=== PATIENT | male | born 1985 | race Caucasian/White ===

== ENCOUNTER 2020-04-28 20:48 | Emergency (ER) | payer MEDICAID ==
[2020-04-28 21:02] VITALS: BP 126/75; PULSE 64
--- NOTE | 2020-04-28 21:34 | EDM.PDOC ---
ED HPI GENERAL MEDICAL PROBLEM - General Chief Complaint: General Stated Complaint: HEADACHE, VISION DISTURBANCE EPISODE Time Seen by Provider: 04/28/20 20:56 Source of Information: Reports: Patient, Family, RN, RN Notes Reviewed History Limitations: Reports: No Limitations - History of Present Illness INITIAL COMMENTS - FREE TEXT/NARRATIVE: Earlier this evening patient had a numbness/kaleidoscope aura in his left eye. He defines this as a strange event unlike anything is ever experienced. He denies pain, blurriness of vision or headache. He states he went for a walk and within about 20 minutes or so the symptoms went away. A short time later, he had a pain/numbness feeling in his left hand. He does have a cyst in his wrist that occasionally causes numbness. His massages the area for him and the numbness went away. At approximately 8:00 or so he describes a numbness in his mouth and lips predominantly the left side. No facial numbness. No eye droop, and no numbness of his tongue. The symptoms also resolved. Without any residual effects. Patient states his father has had a stroke, his brother had a TIA at the age of 43. Patient is concerned symptoms are a problem told to a stroke. Onset: Today, Sudden Onset Date: 04/28/20 Onset Time: 19:00 Duration: Hour(s):, Resolved Prior to Arrival Location: Reports: Head, Face, Upper Extremity, Left Quality: Reports: Other (Numbness in the face around the mouth, R in left eye, numbness in left hand with probable explanation related to cyst in the wrist. He states the numbness in the hand has occurred before with no other symptoms.) Severity: Mild Improves with: Reports: Movement (Patient went for a walk and aura in face/left eye was relieved.) Worsens with: Reports: None Context: Reports: Activity Associated Symptoms: Denies: Confusion, Chest Pain, Cough, Diaphoresis, Fever/Chills, Headaches, Malaise, Nausea/Vomiting, Rash, Seizure, Shortness of Breath, Syncope, Weakness Headache Pain Score (Numeric/FACES): 2 (Resolved prior to arrival) - Related Data Allergies Allergy/AdvReac Type Severity Reaction Status Date / Time No Known Allergies Allergy Verified 04/28/20 21:04 Home Meds: Home Meds NK [No Known Home Meds] 08/12/14 [History] Past Medical History Musculoskeletal History: Reports: Back Pain, Chronic Neurological History: Reports: Other (See Below) Other Neuro History: hernitaed discs L4-5, S1, ciatica pain - Infectious Disease History Infectious Disease History: Reports: Chicken Pox - Past Surgical History HEENT Surgical History: Reports: Tonsillectomy Social & Family History - Tobacco Use Smoking Status *Q: Never Smoker - Caffeine Use Caffeine Use: Reports: Coffee - Recreational Drug Use Recreational Drug Use: No ED ROS GENERAL - Review of Systems Review Of Systems: See Below Constitutional: Denies: Fever, Chills, Malaise, Weakness, Fatigue, Night Sweats, Diaphoresis HEENT: Reports: Glasses. Denies: Dental Pain, Ear Discharge, Ear Pain, Eye Discharge, Eye Pain (Described as aura), Hearing Loss, Rhinitis, Sinus Problem, Throat Pain, Throat Swelling, Vertigo, Vision Change Respiratory: Reports: No Symptoms Cardiovascular: Reports: No Symptoms Endocrine: Reports: No Symptoms GI/Abdominal: Reports: No Symptoms : Reports: No Symptoms Musculoskeletal: Reports: No Symptoms Skin: Reports: No Symptoms Neurological: Reports: Headache (Described as numbness or pressure), Numbness (Around mouth, and left hand both have resolved prior to arrival). Denies: Confusion, Dizziness, Seizure, Syncope, Tremors, Difficulty Walking, Weakness Psychiatric: Reports: Anxiety (Noted history of anxiety on previous visit) Hematologic/Lymphatic: Reports: No Symptoms Immunologic: Reports: No Symptoms ED EXAM, GENERAL - Physical Exam Exam: See Below Exam Limited By: No Limitations General Appearance: Alert, WD/WN, No Apparent Distress Eye Exam: Bilateral Eye: Normal Inspection, PERRL Ears: Normal External Exam, Normal Canal, Hearing Grossly Normal, Normal TMs Nose: Normal Inspection, Normal Mucosa, No Blood Throat/Mouth: Normal Inspection, Normal Lips, Normal Teeth, Normal Gums, Normal Voice, No Airway Compromise Head: Atraumatic, Normocephalic. No: Facial Swelling, Facial Tenderness, Sinus Tenderness Neck: Normal Inspection, Supple, Non-Tender, Full Range of Motion Respiratory/Chest: No Respiratory Distress, Lungs Clear, Normal Breath Sounds, No Accessory Muscle Use, Chest Non-Tender Cardiovascular: Normal Peripheral Pulses, Regular Rate, Rhythm Peripheral Pulses: 2+: Carotid (L), Carotid (R), Radial (L), Radial (R) GI/Abdominal: Normal Bowel Sounds, Soft, Non-Tender Extremities: Normal Inspection, Normal Range of Motion, Non-Tender Neurological: Alert, Oriented, CN II-XII Intact, Normal Cognition, Normal Gait (I am sure he probably came), Normal Reflexes, No Motor/Sensory Deficits. No: Disoriented, Slow to Respond, Unresponsive, Memory Loss Recent Events Psychiatric: Normal Affect, Normal Mood, Anxious Skin Exam: Warm, Dry, Intact, Normal Color Lymphatic: No Adenopathy Course - Vital Signs Last Recorded V/S: Last Vital Signs Temp 36.6 C 04/28/20 21:06 Pulse 64 04/28/20 21:06 Resp 16 04/28/20 21:06 BP 126/75 04/28/20 21:06 Pulse Ox 96 04/28/20 21:06 - Re-Assessments/Exams Free Text/Narrative Re-Assessment/Exam: 04/28/20 22:30 Significant education regarding signs and symptoms of TIA and stroke as well as other nerve disorders including Rivas's palsy, Guyon Hankins, trigeminal neuralgia with additional education regarding anxiety and stress. Symptoms had resolved prior to arrival. The 3 separate incidents resolved prior to the next one starting. He had numbness he has had previously. This is related to a cyst in his wrist. Once his massage the cyst and the numbness went away as has happened in the past. They aura in the eye and the numbness in the mouth were short-lived lasting only minutes. Patient states he is nervous about having a stroke. Due to resolution of symptoms and a normal neuro exam it is difficult to assess. Patient and are provided the information necessary to look for specific as well as vague events they should report and/or come to the ER clinic for follow-up. Both are comfortable with this explanation and agrees to watch for signs and symptoms or further events. Departure - Departure Time of Disposition: 21:47 Disposition: Home, Self-Care 01 Condition: Good Clinical Impression: Anxiety - Discharge Information *PRESCRIPTION DRUG MONITORING PROGRAM REVIEWED*: Not Applicable *COPY OF PRESCRIPTION DRUG MONITORING REPORT IN PATIENT VENU: Not Applicable Instructions: Rivas Palsy, Adult, Transient Ischemic Attack, [id number] Referrals: PCP,None [Primary Care Provider] - Forms: ED Department Discharge Additional Instructions: Pt and provided education on TIA's SxS to watch for. Pt father with stroke and older brother had a TIA at 43. Pt is 34 and concerned he may have similar issues or at risk of having same outcome. Care Plan Goals: Pt is now symptom free. Pt will report any signs or symptoms of numbness, headache, palpations, increased blood pressure. Pt to followup with primary care provider for health maintenance and healthy living to prevent increase risk of stroke.. Sepsis Event Note (ED) - Evaluation Sepsis Screening Result: No Definite Risk - Focused Exam Vital Signs: Vital Signs Temp Pulse Resp BP Pulse Ox 04/28/20 21:06 36.6 C 64 16 126/75 96 04/28/20 20:59 36.6 C 64 16 126/75 96
== END 2020-04-28 21:47 | disposition home or self-care (01) ==
LOC: JP.ED 20:48
DX: F41.9 Anxiety disorder, unspecified (principal); G51.0 Bell's palsy
CPT/HCPCS: 99283

== ENCOUNTER 2022-04-24 06:22 | Day surgery (SDC) | payer MEDICAID ==
[2022-04-24] MEDS ORDERED: Lactated Ringers 1,000 ML IV SCH (07:00)
[2022-04-24] MEDS ORDERED: Propofol 200 MG/20 ML SDV ONE (07:31)
[2022-04-24] MEDS ORDERED: fentaNYL 100 MCG/2 ML SDV ONE (07:31)
[2022-04-24] MEDS ORDERED: Midazolam 1 MG/ML 2 ML SDV ONE (07:31)
[2022-04-24 09:46] VITALS: BP 119/74; PULSE 50
== END 2022-04-24 09:54 | disposition home or self-care (01) ==
LOC: JP.SDS 06:22
PROVIDERS: ATTEND Family Medicine
DX: K21.00 Gastro-esophageal reflux disease with esophagitis, without bleeding (principal); K29.00 Acute gastritis without bleeding; E66.9 Obesity, unspecified; F17.200 Nicotine dependence, unspecified, uncomplicated; Z68.37 Body mass index [BMI] 37.0-37.9, adult
CPT/HCPCS: 43235; J2250; J2704; J3010; J7120

== ENCOUNTER 2022-07-30 16:07 | Inpatient (IN) | payer MEDICAID ==
[2022-07-30] MEDS ORDERED: Ondansetron 4 MG/2 ML SDV IV PRN (16:24)
[2022-07-30] MEDS ORDERED: Sodium Chloride 0.9% 10 ML Syringe FLUSH PRN (16:24)
[2022-07-30] MEDS ORDERED: HYDROmorphone 0.5 MG/0.5 ML Syringe IVPUSH PRN (16:29)
[2022-07-30] MEDS: Sodium Chloride 0.9% 1,000 ML IV SCH (17:03)
[2022-07-30] MEDS: Ampicillin/Sulbactam Na 1.5 GM in Sodium Chloride 0.9% 50 ML IV SCH ×2 (17:03→21:05)
[2022-07-30] MEDS: Enoxaparin 40 MG/0.4 ML Syringe SUBCUT SCH (17:37)
[2022-07-30] MEDS: Acetaminophen 325 MG Tab PO PRN (18:29)
[2022-07-31] MEDS: Sodium Chloride 0.9% 1,000 ML IV SCH (02:05)
[2022-07-31] MEDS: Acetaminophen 325 MG Tab PO PRN ×4 (03:52→17:59)
[2022-07-31] MEDS: Ampicillin/Sulbactam Na 1.5 GM in Sodium Chloride 0.9% 50 ML IV SCH ×4 (03:52→22:03)
[2022-07-31 06:05] LABS: ESTIMATED GFR 101 mL/min (>60)
[2022-07-31] MEDS: Enoxaparin 40 MG/0.4 ML Syringe SUBCUT SCH (17:59)
[2022-07-31] MEDS: Melatonin 3 MG Tab PO SCH (22:03)
[2022-08-01] MEDS: Ampicillin/Sulbactam Na 1.5 GM in Sodium Chloride 0.9% 50 ML IV SCH ×4 (04:36→21:14)
[2022-08-01] MEDS: Acetaminophen 325 MG Tab PO PRN ×5 (05:13→21:45)
[2022-08-01] MEDS ORDERED: Potassium Chloride 20 MEQ Tab.ER PO ONE ×2 (08:09→17:00)
[2022-08-01] MEDS: Enoxaparin 40 MG/0.4 ML Syringe SUBCUT SCH (17:34)
[2022-08-01] MEDS: Melatonin 3 MG Tab PO SCH (21:14)
[2022-08-02] MEDS: Ampicillin/Sulbactam Na 1.5 GM in Sodium Chloride 0.9% 50 ML IV SCH ×4 (04:12→21:14)
[2022-08-02] MEDS: Acetaminophen 325 MG Tab PO PRN ×3 (07:14→15:11)
[2022-08-02] MEDS: Enoxaparin 40 MG/0.4 ML Syringe SUBCUT SCH (17:30)
[2022-08-02] MEDS: Melatonin 3 MG Tab PO SCH (21:16)
[2022-08-03] MEDS: Ampicillin/Sulbactam Na 1.5 GM in Sodium Chloride 0.9% 50 ML IV SCH (03:52)
[2022-08-03] MEDS ORDERED: Iopamidol 612 MG/ML 100 ML Bottle IV STA (04:22)
[2022-08-03] MEDS ORDERED: Sodium Chloride 0.9% 50 ML IV STA (04:22)
[2022-08-03 05:03] LABS: ESTIMATED GFR 101 mL/min (>60)
[2022-08-03 07:58] VITALS: BP 149/76; PULSE 66
[2022-08-03] MEDS ORDERED: Amoxicillin/Clavulanate K 875-125 MG Tab PO SCH (09:00)
== END 2022-08-03 12:45 | disposition home or self-care (01) | DRG 392 ==
LOC: JP.MS 16:07 → OBSVTOIN 16:24
PROVIDERS: ADMIT Hospitalist; ATTEND Internal Medicine
DX: K57.20 Diverticulitis of large intestine with perforation and abscess without bleeding (principal); K21.9 Gastro-esophageal reflux disease without esophagitis; G89.29 Other chronic pain; M54.9 Dorsalgia, unspecified; Z20.822 Contact with and (suspected) exposure to COVID-19; Z86.16 Personal history of COVID-19; Z90.89 Acquired absence of other organs; Z87.891 Personal history of nicotine dependence
CPT/HCPCS: 36415; 74177; 80048; 80053; 83735; 85025; A9270-GY; J0295; J1170; J1650; J3490; J7030; Q9967; U0002

== ENCOUNTER 2022-08-12 15:52 | Inpatient (IN) | payer MEDICAID ==
[2022-08-12] MEDS ORDERED: Sodium Chloride 0.9% 1,000 ML IV SCH (16:30)
[2022-08-12] MEDS ORDERED: Sodium Chloride 0.9% 75 ML IV SCH (16:45)
[2022-08-12] MEDS ORDERED: Iopamidol 612 MG/ML 100 ML Bottle IV SCH (16:45)
[2022-08-12] MEDS ORDERED: Acetaminophen 325 MG Tab PO PRN (19:40)
[2022-08-12] MEDS ORDERED: Ondansetron 4 MG/2 ML SDV IV PRN (19:40)
[2022-08-12] MEDS ORDERED: Ondansetron 4 MG Tab.DIS PO PRN (19:40)
[2022-08-12] MEDS ORDERED: Melatonin 3 MG Tab PO PRN (19:40)
[2022-08-12] MEDS ORDERED: oxyCODONE 5 MG Tab PO PRN (19:40)
[2022-08-12] MEDS ORDERED: HYDROmorphone 0.5 MG/0.5 ML Syringe IVPUSH PRN (19:40)
[2022-08-12] MEDS: Pantoprazole 40 MG Vial IV SCH (20:06)
[2022-08-12] MEDS: Meropenem 1 GM in Sodium Chloride 0.9% 100 ML IV SCH (20:06)
[2022-08-12] MEDS: Sodium Chloride 0.9% 1,000 ML IV SCH (20:07)
[2022-08-12 20:57] LABS: CORONAVIRUS COVID-19 NAA NEGATIVE (NEGATIVE)
[2022-08-13] MEDS: Meropenem 1 GM in Sodium Chloride 0.9% 100 ML IV SCH (03:40)
[2022-08-13] MEDS: Sodium Chloride 0.9% 1,000 ML IV SCH (03:41)
[2022-08-13] MEDS ORDERED: Meropenem 500 MG SDV ONE ×2 (06:50→10:25)
[2022-08-13] MEDS ORDERED: Lidocaine 1% with EPINEPHrine 1:100,000 50 ML MDV ONE (06:50)
[2022-08-13] MEDS ORDERED: Bupivacaine 0.5% 50 ML MDV ONE (06:50)
[2022-08-13] MEDS ORDERED: Propofol 200 MG/20 ML SDV ONE (07:06)
[2022-08-13] MEDS ORDERED: Rocuronium 50 MG/5 ML Vial ONE ×2 (07:06→09:11)
[2022-08-13] MEDS ORDERED: Ondansetron 4 MG/2 ML SDV ONE (07:06)
[2022-08-13] MEDS ORDERED: Dexamethasone 4 MG/ML SDV ONE (07:06)
[2022-08-13] MEDS ORDERED: Glycopyrrolate 0.2 MG/ML 5 ML MDV ONE (07:06)
[2022-08-13] MEDS ORDERED: fentaNYL 250 MCG/5 ML SDV ONE ×2 (07:06→08:49)
[2022-08-13] MEDS ORDERED: Neostigmine Methylsulfate 1 MG/ML 5 ML Syringe ONE (07:06)
[2022-08-13] MEDS ORDERED: Succinylcholine 200 MG/10 ML MDV ONE (07:06)
[2022-08-13] MEDS ORDERED: Ketamine 23 MG in Sodium Chloride 0.9% 19.77 ML IV SCH (08:00)
[2022-08-13] MEDS ORDERED: Ketamine 500 MG/5 ML MDV IV SCH (08:00)
[2022-08-13] MEDS ORDERED: Naloxone 0.4 MG/ML SDV IV PRN (08:00)
[2022-08-13] MEDS ORDERED: Lactated Ringers 1,000 ML ONE (09:40)
[2022-08-13] MEDS ORDERED: Sodium Chloride 0.9% 10 ML ONE (10:25)
[2022-08-13] MEDS: HYDROmorphone/Normal Saline 6 MG/30 ML PCA Vial IV PRN ×3 (11:23→20:25)
[2022-08-13] MEDS: hydrOXYzine HCL 100 MG/2 ML SDV IM PRN ×2 (11:48→16:01)
[2022-08-13] MEDS: Cyclobenzaprine 10 MG Tab PO PRN ×2 (11:51→19:48)
[2022-08-13] MEDS ORDERED: Cyclobenzaprine 10 MG Tab PO PRN (11:53)
[2022-08-13] MEDS ORDERED: Albuterol/Ipratropium 3.0-0.5 MG/3 ML Neb Soln INH PRN (11:57)
[2022-08-13] MEDS ORDERED: diphenhydrAMINE 50 MG/ML SDV IVPUSH PRN (12:00)
[2022-08-13] MEDS ORDERED: Labetalol 20 MG/4 ML Syringe IVPUSH PRN (12:00)
[2022-08-13] MEDS ORDERED: Acetaminophen 500 MG Tab PO PRN (12:00)
[2022-08-13] MEDS ORDERED: Ondansetron 4 MG/2 ML SDV IVPUSH PRN (12:00)
[2022-08-13] MEDS ORDERED: Metoclopramide 10 MG/2 ML SDV IVPUSH PRN (12:00)
[2022-08-13] MEDS: Heparin Sodium 5,000 Units/ML Vial SUBCUT SCH ×2 (12:02→19:41)
[2022-08-13] MEDS: Dextrose 5%-Lactated Ringers 1,000 ML IV SCH ×2 (14:24→21:47)
[2022-08-13] MEDS: Acetaminophen 500 MG Tab PO SCH ×3 (14:35→21:47)
[2022-08-13] MEDS: Meropenem 500 MG in Sodium Chloride 0.9% 50 ML IV SCH ×2 (14:35→19:41)
[2022-08-13] MEDS: MVI, Adult with Vitamin K 10 ML, Thiamine 200 MG, Zinc/Copper/Manganese/Selenium 1 ML i... IV SCH ×4 (15:31)
[2022-08-13] MEDS: Pantoprazole 40 MG Vial IV SCH (19:41)
[2022-08-14] MEDS: HYDROmorphone/Normal Saline 6 MG/30 ML PCA Vial IV PRN ×3 (02:04→17:55)
[2022-08-14] MEDS: Meropenem 500 MG in Sodium Chloride 0.9% 50 ML IV SCH ×4 (02:04→19:11)
[2022-08-14] MEDS: Dextrose 5%-Lactated Ringers 1,000 ML IV SCH ×2 (04:03→11:06)
[2022-08-14] MEDS: Acetaminophen 500 MG Tab PO SCH ×3 (05:59→21:09)
[2022-08-14] MEDS: Heparin Sodium 5,000 Units/ML Vial SUBCUT SCH ×2 (08:12→19:08)
[2022-08-14] MEDS: Cyclobenzaprine 10 MG Tab PO PRN ×2 (08:18→20:05)
[2022-08-14] MEDS: SCOPOLAMINE PATCH CHECK TOP SCH (08:27)
[2022-08-14] MEDS: Celecoxib 200 MG Cap PO SCH ×2 (11:07→20:05)
[2022-08-14] MEDS: MVI, Adult with Vitamin K 10 ML, Thiamine 200 MG, Zinc/Copper/Manganese/Selenium 1 ML i... IV SCH ×4 (16:27)
[2022-08-14] MEDS: Pantoprazole 40 MG Vial IV SCH (20:06)
[2022-08-15] MEDS: HYDROmorphone/Normal Saline 6 MG/30 ML PCA Vial IV PRN ×2 (00:08→09:13)
[2022-08-15] MEDS: Dextrose 5%-Lactated Ringers 1,000 ML IV SCH (02:04)
[2022-08-15] MEDS: Meropenem 500 MG in Sodium Chloride 0.9% 50 ML IV SCH ×2 (02:04→09:29)
[2022-08-15] MEDS: Acetaminophen 500 MG Tab PO SCH ×3 (05:15→21:44)
[2022-08-15] MEDS ORDERED: Meropenem 500 MG SDV ONE (06:08)
[2022-08-15] MEDS ORDERED: Lidocaine 1% with EPINEPHrine 1:100,000 50 ML MDV ONE (06:08)
[2022-08-15] MEDS ORDERED: Bupivacaine 0.5% 50 ML MDV ONE (06:08)
[2022-08-15] MEDS ORDERED: Midazolam 1 MG/ML 2 ML SDV ONE ×2 (07:02→07:33)
[2022-08-15] MEDS ORDERED: Propofol 200 MG/20 ML SDV ONE ×2 (07:02→13:18)
[2022-08-15] MEDS ORDERED: fentaNYL 50 MCG/ML SDV ONE (07:32)
[2022-08-15] MEDS ORDERED: Lactated Ringers 1,000 ML ONE (08:07)
[2022-08-15] MEDS: Heparin Sodium 5,000 Units/ML Vial SUBCUT SCH ×2 (09:14→19:27)
[2022-08-15] MEDS: Celecoxib 200 MG Cap PO SCH ×2 (09:16→21:43)
[2022-08-15] MEDS: SCOPOLAMINE PATCH CHECK TOP SCH (09:16)
[2022-08-15] MEDS ORDERED: Pantoprazole 40 MG Delayed-Release Granules 1 Packet PO SCH (10:45)
[2022-08-15] MEDS: Cyclobenzaprine 10 MG Tab PO PRN ×2 (10:47→21:43)
[2022-08-15] MEDS: oxyCODONE 5 MG Tab PO PRN ×4 (10:47→23:43)
[2022-08-16] MEDS: oxyCODONE 5 MG Tab PO PRN ×3 (04:13→12:06)
[2022-08-16] MEDS: Acetaminophen 500 MG Tab PO SCH (05:36)
[2022-08-16] MEDS: Heparin Sodium 5,000 Units/ML Vial SUBCUT SCH (08:14)
[2022-08-16] MEDS: Cyclobenzaprine 10 MG Tab PO PRN (08:14)
[2022-08-16] MEDS: Celecoxib 200 MG Cap PO SCH (08:14)
[2022-08-16 08:55] VITALS: BP 140/72; PULSE 76
[2022-08-16] MEDS ORDERED: Pantoprazole 40 MG Tab.CR PO SCH (10:45)
== END 2022-08-16 12:24 | disposition home or self-care (01) | DRG 329 ==
LOC: JP.ED 15:52 → JP.MS 18:57
PROVIDERS: ADMIT Hospitalist; ATTEND Surgery
PROC: 0DBN0ZZ Excision of Sigmoid Colon, Open Approach (ICD-10-PCS; 2022-08-13)
PROC: 0DBP0ZZ Excision of Rectum, Open Approach (ICD-10-PCS; 2022-08-13)
PROC: 0W9G0ZZ Drainage of Peritoneal Cavity, Open Approach (ICD-10-PCS; 2022-08-13)
PROC: 3E0M05Z Introduction of Adhesion Barrier into Peritoneal Cavity, Open Approach (ICD-10-PCS; 2022-08-13)
PROC: 0WQF0ZZ Repair Abdominal Wall, Open Approach (ICD-10-PCS; principal; 2022-08-15)
DX: K57.20 Diverticulitis of large intestine with perforation and abscess without bleeding (principal); K65.1 Peritoneal abscess; K21.9 Gastro-esophageal reflux disease without esophagitis; M54.9 Dorsalgia, unspecified; Z20.822 Contact with and (suspected) exposure to COVID-19; G89.29 Other chronic pain; Z86.16 Personal history of COVID-19; Z87.891 Personal history of nicotine dependence
CPT/HCPCS: 0241U; 36415; 74177; 80048; 83690; 85025; 85027; 87070; 87075; 87077; 87186; 87205; 88305; 88307; 96360; 99285-25; A9270-GY; C9113; J0171; J0330; J1100; J1170; J1644; J2020; J2185; J2250; J2405; J2704; J2710; J2795; J3010; J3410; J3411; J3490; J7030; J7120; J7121; Q9967